=== PATIENT | male | born 1950 | race Two or more races ===

== ENCOUNTER 2021-07-07 09:30 | Outpatient (CLI) | payer MEDICARE, OTHER | END 2021-07-07 23:25 | disposition home or self-care (01) | LOC: WOU 09:30 → MSC 23:25 | PROVIDERS: ATTEND Internal Medicine | DX: M54.2 Cervicalgia (principal); M54.50 Low back pain, unspecified; E66.01 Morbid (severe) obesity due to excess calories; Z71.3 Dietary counseling and surveillance; I10 Essential (primary) hypertension; I20.9 Angina pectoris, unspecified; K21.9 Gastro-esophageal reflux disease without esophagitis; F17.210 Nicotine dependence, cigarettes, uncomplicated ==

== ENCOUNTER 2022-01-10 11:35 | Outpatient (CLI) | payer MEDICARE, OTHER | END 2022-01-10 23:59 | disposition home or self-care (01) | LOC: MSC 11:35 | PROVIDERS: ATTEND Internal Medicine | DX: M17.12 Unilateral primary osteoarthritis, left knee (principal); M19.042 Primary osteoarthritis, left hand; M19.041 Primary osteoarthritis, right hand; I10 Essential (primary) hypertension; M54.2 Cervicalgia; K21.9 Gastro-esophageal reflux disease without esophagitis; M54.50 Low back pain, unspecified; E66.9 Obesity, unspecified; Z71.89 Other specified counseling; Z72.0 Tobacco use; Z71.6 Tobacco abuse counseling ==

== ENCOUNTER 2022-09-07 09:20 | Outpatient (CLI) | payer MEDICARE, OTHER | END 2022-09-07 23:59 | disposition home or self-care (01) | LOC: MSC 09:20 | PROVIDERS: ATTEND Internal Medicine | DX: M19.90 Unspecified osteoarthritis, unspecified site (principal); I10 Essential (primary) hypertension; E66.9 Obesity, unspecified; Z71.3 Dietary counseling and surveillance; M54.2 Cervicalgia; K21.9 Gastro-esophageal reflux disease without esophagitis; M54.50 Low back pain, unspecified; Z71.6 Tobacco abuse counseling; Z72.0 Tobacco use ==